=== PATIENT | female | born 1950 | race Caucasian/White ===

== ENCOUNTER 2020-08-09 17:07 | Outpatient (REF) | payer SELFPAY ==
[2020-08-10 18:06] LABS: COVID-19 RT-PCR Result NEGATIVE (Negative)
== END 2020-08-09 17:27 ==
LOC: NCHCN 17:07
PROVIDERS: PCP Family Medicine; Visit Provider Family Medicine
DX: Z11.59 Encounter for screening for other viral diseases (principal)
CPT/HCPCS: U0003